=== PATIENT | female | born 1955 | race African-American/Black ===

== ENCOUNTER 2017-04-20 20:15 | Emergency (ER) | payer OTHER ==
[~2017-04-20] VITALS: Ht 157.5 cm; Wt 68.0 kg
[~2017-04-20 20:15] MED LIST: AMITRIPTYLINE H50 M3 PO; CENTRUM SILVER1 EAC1 PO; CLEOCIN HCL300 MG PO; FISHOIL; HUMALOG100 UNIT/1 SQ; LANTUS SC; LEVAQUIN 500 M500 MG PO; LISINOPRIL20 MG PO; MEDROLDOSEPACK PO; NAMENDA 10 MG T10 MG; NORCO 5-325 TA1 EACH PO; NORVASC10 MG PO; PERCOCET 5-3251 EACH PO; ULTRAM 50MG TAB50 MG PO; ZPAK PO
[2017-04-20] MEDS ORDERED: HUMALOG100 UNIT/1 SUBQ ×3 (20:30→20:31)
[2017-04-20] MEDS ORDERED: LIPITOR10 MG PO (20:32)
[2017-04-20] MEDS ORDERED: LEVEMIR SUBQ (20:32)
[2017-04-20] MEDS ORDERED: COZAAR 50 MG TA50 M1 PO (20:33)
[2017-04-20] MEDS ORDERED: IRON325 PO (20:34)
[2017-04-20] MEDS ORDERED: SERTRALINE HCL50 MG PO (20:34)
[2017-04-20] MEDS ORDERED: NASONEX17 GM NASAL (20:34)
[2017-04-20] MEDS ORDERED: CREON DR 6,0001 EACH PO (20:35)
[2017-04-20] MEDS ORDERED: CLARITIN10 MG PO (20:35)
[2017-04-20] MEDS ORDERED: LYRICA100 MG PO (20:36)
[2017-04-20] MEDS ORDERED: ARICEPT10 M1 PO (20:36)
[2017-04-20] MEDS ORDERED: TRAZODONE HCL100 MG PO (20:36)
[2017-04-20] MEDS ORDERED: TYLENOL EXTRA500 MG PO (20:37)
[2017-04-20] MEDS ORDERED: NATURAL TEARS OPHTHALMIC (20:37)
[2017-04-20] MEDS ORDERED: TRAMADOL 50 MG50 MG PO (20:38)
[2017-04-20] MEDS ORDERED: ONDANSETRON HCL4 M2 PO (20:39)
[2017-04-20] MEDS ORDERED: ROBITUSSIN100 MG/53 PO (20:39)
== END 2017-04-20 21:55 | disposition home or self-care (01) ==
LOC: ER 20:15
DX: M79.601 Pain in right arm (principal); E11.9 Type 2 diabetes mellitus without complications; Z90.49 Acquired absence of other specified parts of digestive tract; Z88.0 Allergy status to penicillin; Z88.5 Allergy status to narcotic agent; Z88.6 Allergy status to analgesic agent; Z88.1 Allergy status to other antibiotic agents; Z88.8 Allergy status to other drugs, medicaments and biological substances; Z91.040 Latex allergy status; Z79.4 Long term (current) use of insulin